=== PATIENT | male | born 1985 | race Caucasian/White ===

== ENCOUNTER 2016-05-27 11:13 | Emergency (ER) | payer MEDICARE, MEDICAID ==
--- NOTE | ~2016-05-27 | ER ---
PATIENT'S NAME: JUSTIN PAIZ [facility] AGE: 30 Y [address] ROOM: [place] [address] LOCATION: [facility] ADMIT DATE: 05/27/2016 ER/Outpatient Report DISCHARGE DATE: 05/27/2016 FAMILY PHYSICIAN: Jose Rick MD ATTENDING PHYSICIAN: Desirae Finn ARRIVAL TIME: 1202 hours. ENCOUNTER TIME: 1212 hours. SUBJECTIVE: CHIEF COMPLAINT: Right foot pain. HISTORY OF PRESENT ILLNESS: The patient is a pleasant and well-appearing 30-year-old male with some developmental delay, complaining of right foot pain that started yesterday. He has a known history of having very flat feet, and works pushing carts at [employer]. Denies any acute injury or crush trauma to the area. Describes the pain in the center between the MTP joints of the first, second, and third digits of his right foot. Nontender to palpation, but weightbearing does aggravate his discomfort. He has some ecchymosis present on the plantar aspect of his foot to coincide with this observation, but this is also present on his left foot. He states that this is not new and has been there a long time in terms of the discoloration. Denies any numbness or tingling. The patient also complains of pressure in his left ear and would like to have that looked at today. Denies pain. Does experience a popping sensation when he chews, as well as some muffled hearing at times. He states that this issue has come and gone off and on since spring and his allergies kicked in. PERTINENT REVIEW OF SYSTEMS: All systems were reviewed by me and negative unless otherwise stated in the HPI. PAST MEDICAL HISTORY: The patient denies. PAST SURGICAL HISTORY: The patient denies. MEDICATIONS: PATIENT'S NAME: JUSTIN PAIZ [facility] AGE: 30 Y [address] ROOM: [place] [address] LOCATION: [facility] ADMIT DATE: 05/27/2016 ER/Outpatient Report DISCHARGE DATE: 05/27/2016 FAMILY PHYSICIAN: Jose Rick MD ATTENDING PHYSICIAN: Desirae Finn Include a daily multivitamin. ALLERGIES: AMOXICILLIN, WHICH CAUSES A RASH. SOCIAL HISTORY: Nonsmoker, but does use chewing tobacco occasionally and uses alcohol occasionally. OBJECTIVE: VITAL SIGNS: Height 5 feet 8 inches and weight 131.5 kg. Blood pressure 158/76, pulse of 66, respirations 20 per minute, temperature at 98.0 degrees Fahrenheit tympanically, and SpO2 of 98% on room air. Denies pain when not weightbearing, 0/10. GENERAL: The patient is an obese male, in no acute distress. Calm. Alert and oriented to person, place, and time. HEENT: Head is atraumatic and normocephalic. Eyes: Conjunctivae clear. No discharge. Pupils are PERRLA bilaterally. EOMFI bilaterally. No nystagmus. Tympanics retracted bilaterally, but left side worse than the right. Auditory canals are patent. No erythema on the tympanic membranes. NECK: Supple and without lymphadenopathy. Trachea midline. No JVD. LUNGS: Clear to auscultation bilaterally. No wheezes, crackles, rhonchi, or stridor. Normal respiratory effort. HEART: Regular rate and rhythm. No S3, S4, or extra sounds. EXTREMITIES: Some ecchymosis locally along the plantar aspect of the foot over the MTPs of the second and third digits. Very mildly tender locally. Full range of motion of the foot. Arches collapsed bilaterally. Full range of motion of the ankle without discomfort or crepitus. Distal CSM is intact. RADIOLOGY: Four-view weightbearing x-rays of the right foot were negative for acute injury. No obvious fracture or dislocation. Discussed results with the patient. We will send for over-read. ASSESSMENT: 1. Fallen arch of foot, flat footed, right foot pain. 2. Left-sided eustachian tube dysfunction. PLAN: Provided the patient with a prescription to go get a [employer] arch support. These range about $30 in [place] in several businesses, and I feel this will help provide him some support for his feet. If his discomfort continues, encouraged him to follow up with the regular physician or even a medicaid plan compliance director for further workup. He may also freeze a water bottle and use that to gently roll his foot onto any tender points. The patient was agreeable PATIENT'S NAME: ARIELSTEPHANIEJUSTIN [facility] AGE: 30 Y [address] ROOM: [place], [place] [address] LOCATION: [facility] ADMIT DATE: 05/27/2016 ER/Outpatient Report DISCHARGE DATE: 05/27/2016 FAMILY PHYSICIAN: Jose Rick MD ATTENDING PHYSICIAN: Desirae Finn with conversation. Left-sided eustachian tube dysfunction can be treated supportively with over- the-counters including ibuprofen and nasal steroid sprays. He is not a good candidate for Sudafed due to his blood pressure. Discussed this all in detail with the patient and his mother. They verbalized understanding. Take all medications as prescribed. Discussed medication risks, side effects, and benefits in detail. Get plenty of rest and liquids. Take Tylenol or ibuprofen as directed for fever or discomfort unless allergic, asthmatic, or aspirin sensitive. Return to the emergency department or primary care provider if symptoms persist or worsen. AMILCAR MOE PA-C FOR DESIRAE FINN MD SMR/modl /[id number] d: 05/27/16 180 t: 06/02/16 1216, OUTPATIENT REPORT
== END 2016-05-27 13:13 | disposition disaster alternative care site (69) ==
LOC: GMED 11:13
DX: M79.671 Pain in right foot (principal); H69.90 Unspecified Eustachian tube disorder, unspecified ear; F17.220 Nicotine dependence, chewing tobacco, uncomplicated